=== PATIENT | female | born 1975 | race Caucasian/White ===

== ENCOUNTER → 2018-12-17 | Outpatient (CLI) | payer OTHER ==
[~2018-12-17] MED LIST: ASA81BEC PO; FISH OIL 1,001000 M2 PO; UNICOMPLEX M TA1 TA1 PO
== END ==
LOC: CAT 09:55
DX: Z13.6 Encounter for screening for cardiovascular disorders (principal); Z82.49 Family history of ischemic heart disease and other diseases of the circulatory system